=== PATIENT | female | born 1965 | race Caucasian/White ===

== ENCOUNTER → 2019-11-30 07:00 | Outpatient (CLI) | payer BC, SELFPAY ==
--- NOTE | ~2019-11-30 | MM_ITS ---
EXAMINATION: MM screening art BI w marcio HISTORY: Screening mammogram TECHNIQUE: Craniocaudal and mediolateral oblique 3-D tomosynthesis images were obtained and synthetic 2-D images were generated. CAD analysis was submitted and interpreted. COMPARISON: 11/14/2018, 10/28/2017, 10/13/2017, 09/18/2016 BREAST PARENCHYMAL COMPOSITION: There are scattered areas of fibroglandular density. FINDINGS: RIGHT BREAST: There appears to be slight increase in density of an asymmetry in the posterior third o f the outer breast 9.5 cm from the nipple on the craniocaudal view. LEFT BREAST: There is no evidence of suspicious mass, calcification, or architectural distortion to s uggest malignancy. There has been no significant interval change IMPRESSION: 1. Possible increase in density of an asymmetry of the outer right breast. 2. Additional mammographic views and possible breast ultrasound are recommended. BI-RADS Category 0: Incomplete: Needs additional imaging evaluation. Reviewed, dictated and finalized at location A. ILL CLERK IMPRESSION: 1. Possible increase in density of an asymmetry of the outer right breast. 2. Additional mammographic views and possible breast ultrasound are recommended . BI-RADS Category 0: Incomplete: Needs additional imaging evaluation.
== END ==
PROVIDERS: PCP Family Medicine; Visit Provider Obstetrics & Gynecology
DX: Z12.31 Encounter for screening mammogram for malignant neoplasm of breast (principal)
CPT/HCPCS: 77063; 77067

== ENCOUNTER → 2019-12-12 08:45 | Outpatient (CLI) | payer BC, SELFPAY ==
--- NOTE | ~2019-12-12 | MMUS_ITS ---
EXAMINATION: MM diagnostic mammo unilat RT, US breast RT limited HISTORY: Possible increased density and asymmetry of the right breast on screening mammogram TECHNIQUE: Additional 3-D tomosynthesis images of the right breast were performed and synthetic 2-D i mages were generated. CAD analysis was submitted and interpreted. High resolution limited right breas t ultrasound was performed. COMPARISON: 11/30/2019, 11/14/2018, 10/13/2017, 09/18/2016 , 07/30/2014 FINDINGS: MAMMOGRAPHIC FINDINGS: There is an approximately 10 mm x 8 mm oval, obscured, equal density mass in the posterior third of t he upper outer quadrant of the breast at the 11:00 location 9 cm from the nipple. ULTRASOUND: There is a 10 mm x 4 mm oval, parallel, hypoechoic mass with slightly indistinct margins at the 10:00 location 6 cm from the nipple corresponding to the mammographic finding in question. There our no de finite posterior features or internal vascularity. Two small hypoechoic 2 mm and 4 mm are also seen a t the 10:00 location 6 cm from the nipple which are likely cysts. IMPRESSION: 1. Suspicious mass at the 10:00 location 6 cm from the nipple in the right breast. 2. Ultrasound guided biopsy is recommended. BI-RADS category 4, suspicious findings. Reviewed, dictated and finalized at location A. MIXER IMPRESSION: 1. Suspicious mass at the 10:00 location 6 cm from the nipple in the right [address]. 2. Ultrasound guided biopsy is recommended. BI-RADS category 4, suspicious findings.
== END ==
PROVIDERS: Visit Provider Obstetrics & Gynecology
DX: N63.11 Unspecified lump in the right breast, upper outer quadrant (principal)
CPT/HCPCS: 76642; 77065

== ENCOUNTER 2024-04-18 12:13 | Emergency (ER) | payer BC, SELFPAY ==
--- NOTE | ~2024-04-18 | CT_ITS ---
EXAMINATION: CT shoulder LT wo con DATE: 04/18/2024 15:00 INDICATION: Left shoulder pain and possible fracture TECHNIQUE: High resolution computed tomography (CT) of the left shoulder was performed without intrav enous contrast. Additional sagittal and coronal reconstructions were performed. Automated exposure co ntrol and iterative reconstruction technique were employed. The dose-length product was 300.36 mGy-cm . COMPARISON: None FINDINGS: Bone alignment is normal. No fracture. 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 Glenohumeral joint space is normal with no effus ion. 5 mm globular calcification at the junction of the middle and posterior facets of the greater tu berosity consistent with calcific tendinitis. Visualized portion of the left lung is clear. No pathol ogically enlarged left axillary or left thoracic lymphadenopathy. Moderate thoracic spondylosis. IMPRESSION: 1. Small calcific density long the left greater tuberosity consistent with calcific tendinitis. No ac romy osseous abnormality. Reviewed, dictated and finalized at location B. IMPRESSION: 1. Small calcific density long the left greater tuberosity consistent with calc ific tendinitis. No acute osseous abnormality.
--- NOTE | ~2024-04-18 | XR_ITS ---
XR shoulder LT min 2V Ordering provider: Carmelita Marrufo MD History: . Fall, pain . Comparison: None. FINDINGS: BONES: No acute fracture or dislocation. JOINT SPACES: The acromioclavicular joint is normal. The glenohumeral joint is normal. SOFT TISSUES: Ossification at the insertion of the supraspinatus is seen IMPRESSION: No definite acute osseous abnormality left shoulder. Highly suggestive of ossific tendinitis of the supraspinatus tendon. Other differential include chip fracture from the humeral length of synovial chondromatosis in the joint space. Reviewed, dictated and finalized at location A. IMPRESSION: No definite acute osseous abnormality left shoulder. Highly suggestive of ossific tendinitis of the supraspinatus tendon. Other diff erential include chip fracture from the humeral length of synovial chondromatos is in the joint space.
--- NOTE | ~2024-04-18 | XR_ITS ---
XR elbow LT min 3V Ordering provider: Carmelita Marrufo MD History: . Fall, pain, swelling . Comparison: None. FINDINGS: BONES: No acute fracture or dislocation. JOINT SPACES: Normal. SOFT TISSUES: Normal. No definite joint effusion. IMPRESSION: No acute osseous abnormality left elbow. Reviewed, dictated and finalized at location A.
[2024-04-18 12:24] VITALS: BP 140/65; PULSE 77; RESP 16; TEMP 36.8; O2SAT 100
--- NOTE | 2024-04-18 14:48 | ED.UPPEXIN ---
HPI - Extremity Injury (Upper) General Chief Complaint: Extremity Injury, Upper Stated Complaint: L arm injury Time Seen by Provider: 04/18/24 13:30 Source: patient Mode of arrival: ambulatory Limitations: no limitations History of Present Illness HPI narrative: This is a 58 year old female that presents to the ER for left arm injury sustained 2 days ago. Reports she was walking while holding her grandchild and tripped and fell onto her left shoulder. Reports pain to the left shoulder and elbow. Denies hitting her head, loss of consciousness, decreased ROM or numbness. Related Data Allergies Allergy/AdvReac Type Severity Reaction Status Date / Time No Known Allergies Allergy Verified 04/18/24 13:03 Review of Systems Review of Systems: CONSTITUTIONAL: Denies fever MUSCULOSKELETAL: Reports joint pain, and myalgia. NEUROLOGIC: Denies numbness, or weakness. All systems reviewed & are unremarkable except as noted in HPI and below PMFSH Past Medical History Medical History (Updated 04/18/24 @ 15:35 by Paulina Rae PA-C) No active medical problems Social History Social History (Updated 04/18/24 @ 14:52 by Paulina Rae PA-C) Substance use: never Exam Narrative: GENERAL: Well-appearing, well-nourished, and in no acute distress. HEAD: Normocephalic, atraumatic. EYES: EOMI. EXTREMITIES: Normal range of motion. No edema or obvious deformity. Normal radial pulse. Normal sensation. Contusion over the elbow with superficial abrasion SKIN: Warm, dry, no rash. NEURO: No focal deficits. Alert and oriented x3. PSYCH: Normal mood and affect Course Course Emergency Course: Patient updated on her workup and agrees with plan of care Vital Signs Vital signs: Vital Signs Temperature 98.2 F 04/18/24 12:24 Pulse Rate 77 04/18/24 12:24 Respiratory Rate 16 04/18/24 12:24 Blood Pressure 140/65 04/18/24 12:24 Pulse Oximetry 100 04/18/24 12:24 Oxygen Delivery Room Air 04/18/24 12:24 Temperature 98.2 F 04/18/24 12:24 Pulse Rate 77 04/18/24 12:24 Respiratory Rate 16 04/18/24 12:24 Blood Pressure 140/65 04/18/24 12:24 Pulse Oximetry 100 04/18/24 12:24 Oxygen Delivery Room Air 04/18/24 12:24 MDM - Extremity Injury (Upper) MDM Narrative Medical decision making narrative: Patient presents to the emergency department for left elbow and shoulder pain after a fall 2 days ago. She is neurovascularly intact. Left elbow x-ray is without acute osseous abnormalities. Left shoulder x-ray shows calcific tendinitis versus a chip fracture of the humerus. CT shoulder shows this finding to be calcific tendinitis. Patient was updated on her workup and agrees with plan of care. She is to follow up with PCP. She was given warnings to return to the ER Differential Diagnosis Differential diagnosis: Likely fracture of humerus and other (elbow fracture, contusion) Imaging Data Radiologist's impression: ITS Impressions Elbow X-Ray 04/18/24 13:19 IMPRESSION: No acute osseous abnormality left elbow. Shoulder X-Ray 04/18/24 13:23 IMPRESSION: No definite acute osseous abnormality left shoulder. Highly suggestive of ossific tendinitis of the supraspinatus tendon. Other differential include chip fracture from the humeral length of synovial chondromatosis in the joint space. Shoulder CT 04/18/24 15:02 IMPRESSION: 1. Small calcific density long the left greater tuberosity consistent with calcific tendinitis. No acute osseous abnormality. Critical Care Time Critical Care Time Critical Care Time: No Discharge Plan Discharge Clinical Impression: Calcific tendinitis Contusion of elbow, left Qualifiers: Encounter type: initial encounter Qualified Code(s): S50.02XA - Contusion of left elbow, initial encounter Patient Disposition: Home, Self-Care Condition: Stable Instructions: Contusion in Adults (ED), Calcific Tendinitis (ED) Additiona
== END 2024-04-18 15:47 | disposition home or self-care (01) ==
PROVIDERS: Emergency Provider Physician Assistant
DX: S50.02XA Contusion of left elbow, initial encounter (principal); M75.32 Calcific tendinitis of left shoulder; W01.0XXA Fall on same level from slipping, tripping and stumbling without subsequent striking against object, initial encounter
CPT/HCPCS: 73030; 73080; 73200; 99284